=== PATIENT | male | born 1965 | race Caucasian/White ===

== ENCOUNTER → 2020-08-27 | Outpatient (CLI) | payer BC ==
--- NOTE | 2020-08-27 10:15 | RAD ---
XR FOOT_RIGHT 3 VIEWS Clinical indications: Reason: RIGHT FOOT PAIN, DIABETIC ULCER ON FOOT Findings: No acute fracture or dislocation or osteolytic process is evident. No periosteal reaction is evident. No soft tissue air is seen. No plantar spur of the calcaneus is evident. IMPRESSION: No acute osseous abnormality is evident. Electronically signed by: Al Coronel MD (08/27/2020 10:12 AM) [id number]
== END ==
LOC: RAD 09:46
PROVIDERS: ATTEND Family Medicine
DX: E13.621 Other specified diabetes mellitus with foot ulcer (principal)
CPT/HCPCS: 73630